=== PATIENT | female | born 1950 | race Caucasian/White ===

== ENCOUNTER → 2021-12-07 | Outpatient (CLI) | payer MEDICARE, OTHER ==
--- NOTE | 2021-12-07 14:02 | RAD ---
INDICATION: 71 year-old female presents for diagnostic bilateral breast mammogram for evaluation of r ight breast pain/lump. No family history of breast cancer indicated. TECHNIQUE: Full field craniocaudal and mediolateral oblique images of both breasts with additional d iagnostic images were obtained using digital technique with tomosynthesis and analyzed with computer -aided detection software. Targeted high resolution sonography of the region of concern was also perf ormed. COMPARISON: Targeted right breast ultrasound from 05/02/2020 and priors and bilateral breast mammogra m from 07/17/2019 BREAST COMPOSITION: The breasts are heterogeneously dense, which may obscure small masses. FINDINGS: Mammogram: Right breast: There is a 4.8 cm focal asymmetry versus isodense irregular mass at the 8-9:00 position , retroareolar depth, corresponding with the palpable marker. There appear to be a few interspersed c alcifications surrounding this area. There is a irregular isodense 1.2 cm mass at the 3:00 position, middle depth best seen on the CC 3-D image 12/63 and MLO 3-D image 37/75. There is associated architectural distortion with this mass and also a few interspersed calcifications. There is a additional focal asymmetry/irregular isodense mass at the 11-12:00 position, middle or pos terior depth junction with associated architectural distortion as seen on CC 3-D images 16 and 23, an d MLO 3-D image 37/75. There is new dermal thickening involving the medial inferior aspect of the breast with nipple inversi on. Left breast: No significant dominant masses, suspicious calcifications, or other findings suggestive of malignancy. RIGHT BREAST ULTRASOUND: Targeted right breast ultrasound at the 8:00 position, 7 cm deep to the nipple corresponding to the p atient's palpable abnormality revealing a irregular hypoechoic mass with indistinct margins in somewh at of a nonparallel orientation measuring 10 x 9 x 8 mm. There is increased echogenicity along the pe ripheral margins of this mass with subtle mixed through transmission of sound. There is no definite s uspicious vascularity. Surrounding the suspicious mass are discontiguous interspersed areas of hetero geneously dense fibroglandular tissue with suspicious peripheral echogenicity. The entire distributio n appears to correlate with the mammographic area of concern. Additional smaller irregular hypoechoic mass with indistinct margins and increased peripheral echogen icity at the 9:00 position, 3 cm deep to the nipple measuring up to 5 mm. Targeted right breast ultrasound at the 3:00 position, 3 cm DTN reveals a somewhat superficial irregu lar hypoechoic mass with angulated and indistinct margins in a parallel orientation measuring 9 x 8.5 x 4.5 mm. There is a punctate echogenic focus within this mass which demonstrates twinkle artifact w hich appears to correlate with the calcifications seen on mammogram. No associated suspicious vascula rity with subtle decrease in through transmission of sound. Targeted ultrasound at the 11:00 position, 7 cm deep to the nipple mixed echogenic heterogenous bands of tissue with internal echogenic foci measuring up to 3.6 cm in maximal antiradial dimension. There is no discrete mass, however the distribution of the mixed echogenic heterogenous band of tissu e is suspicious and likely correlates with the mammographic finding. Ultrasound of the retroareolar breast reveals a similar appearing irregular mixed echogenic bands of tissue with irregular peripheral echogenicity. There is a questionable circumscribed isoechoic possib le intraductal retroareolar mass measuring up to 5 mm. Right axillary ultrasound reveals a deep irregular hypoechoic mass which is felt to represent an area of abnormal nodular cortical thickening measuring up to 7 mm in maximal diameter. IMPRESSION: 1. Multiple irregular hypoechoic masses within the right breast highly suspicious for multifocal mult icentric disease. Recommend ultrasound-guided biopsy of the irregular hypoechoic mass at the 8:00 pos ition, 7 cm deep to the nipple,, 3:00 position, 3 cm deep to the nipple, and at the 11:00 position, 7 cm deep to the nipple. 2. Suspicious focal cortically thickened right axillary lymph node. Further evaluation with ultrasoun d guided biopsy is recommended. 3. Breast dermal thickening as well as new nipple inversion highly suspicious for dermal lymphatic in volvement. Follow-up with surgical consultation and consider additional evaluation with skin punch bi opsy. 4. No mammographic imaging of malignancy within the left breast. RECOMMENDATION: BI-RADS 5 The highly suspicious findings within the right breast were discussed with the patient at the conclus ion of the imaging evaluation. Recommend 3 site right breast ultrasound guided biopsy as well as ultr asound-guided biopsy of the abnormal right axillary lymph node. Findings were also called to the referring provider's office. It is recommended that the patient be s cheduled for a breast MRI as well as a surgical consultation. The breast MRI should be scheduled to [facility] around the same time as when the patient will receive her ultrasound-guided pathology resul ts. Electronically signed by: Darrell Agosto DO (12/07/2021 2:00 PM) [id number]
== END ==
LOC: MAMMO 08:59
PROVIDERS: ATTEND Nurse Practitioner Family
DX: N63.13 Unspecified lump in the right breast, lower outer quadrant (principal); N63.14 Unspecified lump in the right breast, lower inner quadrant; N63.12 Unspecified lump in the right breast, upper inner quadrant
CPT/HCPCS: 76641; 77066; G0279; 77062